=== PATIENT | male | born 1935 | race Caucasian/White ===

== ENCOUNTER 2016-09-13 01:20 | Emergency (ER) | payer MEDICARE, BC ==
--- NOTE | 2016-09-13 01:19 | EDM.PDOC ---
ED HPI GENERAL MEDICAL PROBLEM - General Stated Complaint: IN BY AMBULANCE Time Seen by Provider: 09/13/16 01:26 Source of Information: Reports: Patient, EMS History Limitations: Reports: No Limitations - History of Present Illness INITIAL COMMENTS - FREE TEXT/NARRATIVE: This 81 yo male patient was brought to the ED by [facility] due to chest pain. The alf reports the patient started to report chest pain at 2100 this evening was given Ativan and Diana while in the alf. The patient was awoken by chest pain and called 911 from his room. The patient reports he has been coughing over the past couple of days with some shortness of breath. EMS reports the EKG demonstrates a possible inferior infarct. The patient has been given Aspirin and Morphine by EMS prior to arrival in the ED. This patient is under court ordered guardianship. The patient has a history of CAD and chronic A. fib. Onset Date: 09/12/16 Onset Time: 21:00 Duration: Constant Location: Reports: Chest Quality: Reports: Ache, Dull Severity: Severe Improves with: Reports: None Worsens with: Reports: None Associated Symptoms: Reports: Chest Pain Treatments YOU[employer] PASTOR: Reports: Aspirin, Other Medication(s) (Morphine) Mid-Sternal Chest Pain Score (Numeric/FACES): 7 - Related Data Allergies Allergy/AdvReac Type Severity Reaction Status Date / Time No Known Allergies Allergy Verified 09/13/16 01:26 Home Meds: Home Meds Acetaminophen [Tylenol Extra Strength] 1 tab PO TID 09/13/16 [History] Albuterol [Proventil Neb Soln] 2.5 mg NEB Q4HRRT 09/13/16 [History] Aspirin [Ecotrin] 81 mg PO DAILY 09/13/16 [History] Bisacodyl [Biscolax] 10 mg RC DAILY PRN 09/13/16 [History] Brimonidine Tartrate [Brimonidine Tartrate 0.2% Ophth Soln] 1 drop EYERT BID 08/25 [History] Budesonide/Formoterol Fumarate [Symbicort 160-4.5 Mcg Inhaler] 2 inh INH BID 08/25 [History] Calcium Carbonate [Tums] 500 mg PO Q8H PRN 09/13/16 [History] Dextromethorphan/guaiFENesin [Robitussin DM] 10 ml PO Q4H PRN 09/13/16 [History] Finasteride [Proscar] 5 mg PO DAILY 09/13/16 [History] Hydrocodone/Acetaminophen [Hydrocodon-Acetaminophen 5-325] 1 each PO Q4H PRN 08/25 [History] LORazepam [Ativan] 0.5 mg PO ONETIME 09/13/16 [History] Latanoprost [Xalatan 0.005% Ophth Soln] 1 drop EYEBOTH BEDTIME 09/13/16 [History ] Magnesium Hydroxide [Milk of Magnesia] 10 ml PO DAILY PRN 09/13/16 [History] OLANZapine [Olanzapine] 2.5 mg PO DAILY 09/13/16 [History] Ranitidine [Zantac] 150 mg PO DAILY 09/13/16 [History] Sertraline HCl [Zoloft] 75 mg PO BEDTIME 09/13/16 [History] ED ROS GENERAL - Review of Systems Review Of Systems: ROS reveals no pertinent complaints other than HPI. ED EXAM, GENERAL - Physical Exam Exam: See Below Exam Limited By: No Limitations General Appearance: Alert, WD/WN, Mild Distress Eye Exam: Bilateral Eye: EOMI, Normal Inspection, PERRL Ears: Normal External Exam, Normal Canal, Hearing Grossly Normal, Normal TMs Nose: Normal Inspection, Normal Mucosa, No Blood Throat/Mouth: Normal Inspection, Normal Lips, Normal Teeth, Normal Gums, Normal Oropharynx, Normal Voice, No Airway Compromise Head: Atraumatic, Normocephalic Neck: Normal Inspection, Supple, Non-Tender, Full Range of Motion Respiratory/Chest: No Respiratory Distress, No Accessory Muscle Use, Chest Non- Tender, Decreased Breath Sounds (Right lower lobe) Cardiovascular: No Gallop, No JVD, No Murmur, No Rub, Other GI/Abdominal: Normal Bowel Sounds, Soft, Non-Tender, No Organomegaly, No Distention, No Abnormal Bruit, No Mass (Male) Exam: Deferred Rectal (Males) Exam: Deferred Back Exam: Normal Inspection, Full Range of Motion, NT Extremities: Pedal Edema (right lower extremity) Neurological: Alert, Oriented, CN II-XII Intact, Normal Cognition, Normal Gait, Normal Reflexes, No Motor/Sensory Deficits Psychiatric: Normal Affect, Normal Mood Skin Exam: Warm, Dry, Intact, Normal Color, No Rash Lymphatic: No Adenopathy EKG INTERPRETATION EKG Date: 09/13/16 Time: 01:29 Rhythm: Other (Second decree type 1) [place]: Normal P-Wave: Present QRS: Normal ST-T: Normal QT: Normal EKG Interpretation Comments: Second Degree Type 1 Course - Vital Signs Last Recorded V/S: Last Vital Signs Temp 36.9 C 09/13/16 01:26 Pulse 73 09/13/16 01:26 Resp 20 09/13/16 01:26 BP 118/43 L 09/13/16 01:26 Pulse Ox 93 L 09/13/16 01:47 - Orders/Labs/Meds Orders: Active Orders 24 hr Category Date Time Status EKG Documentation Completion [RC] URGENT Care 09/13/16 01:12 Active Levofloxacin/Dextrose 5%-Water [Levaquin in D5W 750 MG/ Med 09/13/16 02:19 Ordered 150 ML] 750 mg Premix Bag 1 bag IV ONETIME Medication Orders Levofloxacin/Dextrose 750 mg/ (Premix) 150 mls @ 100 mls/hr IV ONETIME ONE Stop: 09/13/16 03:48 Last Admin: 09/13/16 02:25 Dose: 100 mls/hr Labs: Laboratory Tests 09/13/16 09/13/16 09/13/16 Range/Units 01:30 01:30 01:30 WBC 15.8 H (5.0-10.0) 10^3/uL RBC 4.75 (4.6-6.2) 10^6/uL Hgb 14.8 (14.0-18.0) g/dL Hct 44.1 (40.0-54.0) % MCV 92.8 (80-100) fL MCH 31.2 (27.0-34.0) pg MCHC 33.6 (33.0-35.0) g/dL Plt Count 163 (150-450) 10^3/uL Neut % (Auto) 85.8 H (42.2-75.2) % Lymph % (Auto) 6.0 L (20.5-50.1) % [place] % (Auto) 7.9 (2-8) % Eos % (Auto) 0.1 L (1.0-3.0) % Baso % (Auto) 0.2 (0.0-1.0) % Sodium 140 (138-146) mmol/L Potassium 4.5 (3.5-4.9) mmol/L Chloride 102 (98-109) mmol/L Carbon Dioxide 24 (24-29) mmol/L Anion Gap 18.5 BUN 23 (8-26) mg/dL Creatinine 1.0 (0.6-1.3) mg/dL Est Cr Clr Drug Dosing 57.00 mL/min Estimated GFR (MDRD) > 60 Glucose 126 H (70-105) mg/dL Calcium 1.1 Troponin I 0.03 H* (0.00-0.02) ng/ml Meds: Medications Generic Name Dose Route Start Last Admin Trade Name Freq PRN Reason Stop Dose Admin Levofloxacin/Dextrose 750 mg/ 150 mls @ 100 mls/hr 09/13/16 02:19 09/13/16 02 :25 Premix IV 09/13/16 03:48 100 mls/hr ONETIME ONE Administration Departure - Departure Time of Disposition: 02:27 Disposition: Home, Self-Care 01 Condition: Fair Clinical Impression: Community acquired pneumonia Instructions: Community-Acquired Pneumonia, Adult, [id number] Care Plan Goals: The patient was advised of the examination, lab, EKG and x-ray results during the visit. The patient was given an IV dose of Levaquin while in the ED. The patient should continue on Levaquin while at the alf. If the patient has any additional symptoms or concerns, the patient should communicate with the alf staff. - My Orders Last 24 Hours: My Active Orders 09/13/16 01:12 EKG Documentation Completion [RC] URGENT 09/13/16 02:19 Levofloxacin/Dextrose 5%-Water [Levaquin in D5W 750 MG/150 ML] 750 mg Premix Bag 1 bag IV ONETIME - Assessment/Plan Last 24 Hours: My Active Orders 09/13/16 01:12 EKG Documentation Completion [RC] URGENT 09/13/16 02:19 Levofloxacin/Dextrose 5%-Water [Levaquin in D5W 750 MG/150 ML] 750 mg Premix Bag 1 bag IV ONETIME
[2016-09-13 01:28] VITALS: BP 118/43
[2016-09-13 01:38] LABS: CHLORIDE,CL 102 mmol/L (98-109); SODIUM,NA 140 mmol/L (138-146)
[2016-09-13] MEDS ORDERED: Levofloxacin/Dextrose 5%-Water 750 MG in Premix Bag 1 BAG IV ONE (02:19)
--- NOTE | 2016-09-14 12:18 | EKG ---
09/13/2016 - CONCHA MADDEN - The 12-lead EKG shows atrial flutter with heart rate of 78. No significant ST elevation or ST depression noted on this 12-lead EKG except for nonspecific ST changes on leads V2 and V3. [facility] /[id number]
== END 2016-09-13 03:46 | disposition home or self-care (01) ==
LOC: DL.ED 01:20
DX: J18.9 Pneumonia, unspecified organism (principal); I25.10 Atherosclerotic heart disease of native coronary artery without angina pectoris; I48.91 Unspecified atrial fibrillation; Z79.82 Long term (current) use of aspirin; Z79.899 Other long term (current) drug therapy
CPT/HCPCS: 36415; 71010; 80048; 84484; 85025; 93005; 93010; 96365; 99285; J1956

== ENCOUNTER 2017-06-09 23:20 | Emergency (ER) | payer MEDICARE, BC ==
[~2017-06-09 23:20] MED LIST: LORazepam 0.5 MG Tab PO ONE
[2017-06-09] MEDS ORDERED: LORazepam 0.5 MG Tab ONE (23:24)
== END 2017-06-09 23:25 ==
LOC: DL.ED 23:20
DX: Z53.21 Procedure and treatment not carried out due to patient leaving prior to being seen by health care provider (principal)